=== PATIENT | male | born 1950 | race Caucasian/White ===

== ENCOUNTER 2018-07-15 16:01 | Emergency (ER) | payer MEDICARE, BC, SELFPAY ==
[2018-07-15 16:32] VITALS: BP 150/57; PULSE 73; RESP 18; TEMP 36.8; O2SAT 96
--- NOTE | 2018-07-15 17:17 | W.ED.GENAD ---
Discharge Plan Disposition Patient Disposition: HOME Condition: Stable Discharge Details Chief Complaint: Nk/Back Pain Clinical Impression: Sacroiliac joint pain, Muscle spasm, Low back pain Primary Care Provider: Bessie Vance ED Provider: Beverly Otero Home Meds and New Rx's Prescriptions: New hydromorphone [Dilaudid] 2 mg tablet 2 mg PO Q6H PRN (Reason: pain) Qty: 7 RF: 0 Continued acetaminophen 325 MG tablet 650 mg PO Q4H PRN Qty: 100 RF: 11 blood pressure kit med and lrg 1 EACH kit 1 ea Miscellaneous DAILY Qty: 1 RF: 1 blood-glucose meter [OneTouch Ultra2] 1 EACH kit 1 ea Miscellaneous as directed Qty: 180 RF: 0 insulin syringe-needle U-100 [BD Insulin Syringe] 1 EACH syringe 1 ea Miscellaneous HS Qty: 100 RF: 11 lancets [CirroTouch UltraSoft Lancets] 1 EACH misc 1 ea Miscellaneous BID Qty: 190 RF: 4 Novolog U-100 Insulin aspart 100 UNITS/ML solution 10 units Sub-Q AC Qty: 1 RF: 6 pen needle, diabetic [Pen Needle] 1 EACH needle 1 ea Miscellaneous QID Qty: 100 RF: 3 calcium carbonate 500 MG tablet 500 mg PO TID Qty: 270 RF: 3 aspirin 81 MG tablet,chewable 81 mg PO DAILY Qty: 100 RF: 6 metoprolol succinate 100 MG tablet extended release 24 hr 100 mg PO DAILY 90 Days Qty: 90 RF: 3 ONETOUCH ULTRA TEST STRIPS 1 EACH strip 1 ea Miscellaneous BID Qty: 180 RF: 3 atorvastatin 80 MG tablet 80 mg PO DAILY 90 Days Qty: 90 RF: 3 amlodipine 10 mg tablet 10 mg PO DAILY Qty: 90 RF: 3 Lantus Solostar U-100 Insulin 100 UNIT/1 ML insulin pen 18 u Sub-Q HS RF: 0 Discharge Instructions Instructions: Hydromorphone (By mouth), Low Back Strain (ED), Muscle Spasm (ED) Additional Instructions: Encourage gentle stretching and frequent ambulation. Continue with Tylenol as prescribed for discomfort. Salonpas or Lidoderm patches to affected area. Heat or ice to affected area. Dilaudid as prescribed. Take this only as prescribed, keep in a safe place. Dr. Ortiz has recommended you undergo dialysis tomorrow, please call tomorrow morning You will need prompt follow up with primary care to discuss your back pain, please call tomorrow morning to schedule appointment. If you develop weakness in your legs, altered sensation, fevers/chills, increased pain, change in bladder or bowel function or other new/worsening symptoms please seek care urgently once again. Referrals: Herman De Leon [ NON-[facility] STAFF PHYSICIAN] - Bessie Vance NP [Primary Care Provider] - Discharge Data Discharge Date/Time-TO BE ENTERED AT DEPARTURE: 07/15/18 22:41 Medical Decision Making Patient is 68-year-old male presenting with chief complaint of left lower back pain. Reports the pain is been present for the past week. Denies any trauma. States that the pain is progressive and worsening. States that this morning upon awakening the pain was excruciating. States that secondary to this and the limitations of put on his ADLs, he was unable to attend his typical Friday dialysis treatment. Patient has history of diabetes, hypertension, rosacea, proteinuria, [place], hyperlipidemia, hepatitis C, esophageal reflux, dialysis, stage IV CKD, anemia. Denies any pain radiating into any limb. Denies any fevers or chills. On exam, patient appears chronically ill. He does appear uncomfortable, particularly with movements of his back. Pain is over the left SI joint. No midline tenderness. No step-off. Does not feel tight over this area consistent with muscle spasm. No erythema, warmth or area of fluctuance. No acute abnormalities noted on vital signs. Differential diagnosis includes muscle spasm, osteoarthritis, infection, nerve pain versus other etiology. Discussed concerns with patient. Given his comorbidities, I feel imaging is appropriate at this time despite any known trauma. Will obtain a CT of the patient's SI joint. Will also obtain laboratory evaluation. Patient will be given a one-time dose of Flexeril to help with muscle spasm. CT reviewed by radiologist: FINDINGS: Vertebrae: Mild diffuse osteopenia. Degenerative disc disease and facet arthrosis of the lower lumbar spine. No focal osteolytic or osteoblastic lesion. Sacrum/coccyx: Mild degenerative arthritis of the sacroiliac joints. No inflammatory sacroiliitis. No fracture of the sacrum or suspicious sacral bone lesion. Other bones/joints: Mild degenerative arthrosis of both hip joints. No fracture. Soft tissues: No paraspinal hematoma. Stomach and bowel: Sigmoid diverticulosis. Vasculature: Moderate atherosclerosis throughout the pelvis. Subperitoneal space: Normal presacral soft tissues. DISCS/SPINAL CANAL/NEURAL FORAMINA: L1-L2: Not included on this examination. L2-L3: Mild posterior broad-based disc bulge. No high-grade spinal stenosis. L3-L4: Posterior broad-based disc bulge and facet arthritis. No high-grade spinal stenosis. L4-L5: Mild posterior broad-based disc protrusion and bilateral facet arthritis. No high-grade spinal stenosis. L5-S1: Disc space height loss, vacuum disc, posterior osteophytic ridging and broad-based disc bulge. Bilateral facet hypertrophy. No spinal stenosis. IMPRESSION: 1. No acute abnormality. 2. Degenerative spondylosis of the lumbar spine. 3. Osteopenia. Labs significant for creatinine of 8.63. This is baseline for the patient. No leukocytosis. Sodium is low, potassium is high. Requesting further pain medication. Patient reports no improvement with flexeril. As patient missed dialysis today and will need pain management for extended period with the severity of his pain, will consult with nephrology regarding medications and the patients missed dialysis today. Consulted with Dr. 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 Reviewed imaging, labs and history with the patient. He advised that we could treat with Toradol, other anti-inflammatory, Dilaudid, fentanyl, Tylenol. He did advise that the patient call dialysis tomorrow as his preference is the patient to have 1-2 hours of dialysis tomorrow and routine treatment on Friday. Patient will be treated with IV Toradol, p.o. Tylenol and Lidoderm patch. Discussed plan with patient. Patient reports that pain is improving. However, he is still rating pain at 10/10, states this is down from 50/10. He appears much improved. He is resting comfortably, had been sleeping when I came into the room. He is able to turn in the bed, moving his LE without any signs of discomfort. Discussed further treatment options with the patient. He does not feel sufficiently improved to be able to be discharged. Patient was able to contact neighbor who will come to pick him up, patient initially drove himself here. Will augment his treatment thus far with Fentanyl as this was also advised by Dr. Ortiz. After IV Fentanyl, patient is requesting discharge. Requesting narcotics for home usage for tonight. Will send home with oral Dilaudid as this was advised to be safe per Dr. Ortiz. Plan is for patient to have dialysis tomorrow. Advised that he f/u with PCP in the next 2 days. He will call dialysis center and PCP tomorrow morning. Encouraged hydration. Advised Tylenol or Ibuprofen. Advised heat/ice. Advised topical options to help with discomfort. Encouraged gentle stretching and frequent ambulation. We discussed new/worsening symptoms and when to seek care urgently once again. He will be prescribed oral Dilaudid to be used sparingly if other measures are not sufficient. We discussed risks/benefits of this medication, advised he be judicious with its use. Reviewed PDMP. We discussed home remedies. Encouraged ROM and ambulation. All of their questions and concners were addressed, he is in agreement with this plan. Given strict return precautions. Patient brought home by his neighbor. HPI General Mode of arrival: ambulatory. Date/Time Provider Initiated Documentation: 07/15/18 16:28. Limitations to Documentation: no limitations. Information obtained by: patient. History of Present Illness 68 year old M presents to the emergency department with the chief complaint of left lower back pain, described as severe, with intensity rated at >10. Quality is described as sharp, and is localized to the back. Patient reports no radiation. Patient started experiencing this week(s) (1) and it has been constant. No relieving factors improve symptom(s), No exacerbating factors reported . Patient notes denies chest pain, fever/chills, loss of appetite, nausea/vomiting, rash and weakness. Patient did receive the following treatments prior to arrival, none Related Data Home Medications Medication Instructions Recorded Confirmed acetaminophen 650 mg PO Q4H PRN #100 tab-cap 11/23/15 07/15/18 blood pressure kit med and lrg #1 kit 11/27/15 05/12/18 blood-glucose meter [OneTouch #180 kit 12/04/15 05/12/18 Ultra2] insulin syringe-needle U-100 [BD #100 units 03/15/16 05/12/18 Insulin Syringe] Novolog U-100 Insulin aspart 10 units SUB-Q AC #1 bottle 04/28/17 07/15/18 lancets [OneTouch UltraSoft #190 ea 04/28/17 05/12/18 Lancets] pen needle, diabetic [Pen Needle] #100 units 04/28/17 05/12/18 aspirin 81 mg PO DAILY #100 tab-cap 08/29/17 07/15/18 calcium carbonate 500 mg PO TID #270 tab.chew 08/29/17 07/15/18 metoprolol succinate 100 mg PO DAILY 90 Days #90 tab-cap 01/08/18 07/15/18 atorvastatin 80 mg PO DAILY 90 Days #90 tab-cap 02/12/18 07/15/18 amlodipine 10 mg tablet 10 mg PO DAILY #90 tab-cap 06/16/18 Lantus Solostar U-100 Insulin 18 u SUB-Q HS 07/15/18 07/15/18 hydromorphone [Dilaudid] 2 mg PO Q6H PRN #7 tab 07/15/18 Previous Rx's Medication Instructions Recorded Novolog U-100 Insulin aspart 10 units SUB-Q AC #1 bottle 04/28/17 lancets [OneTouch UltraSoft #190 ea 04/28/17 Lancets] pen needle, diabetic [Pen Needle] #100 units 04/28/17 aspirin 81 mg PO DAILY #100 tab-cap 08/29/17 calcium carbonate 500 mg PO TID #270 tab.chew 08/29/17 metoprolol succinate 100 mg PO DAILY 90 Days #90 tab-cap 01/08/18 atorvastatin 80 mg PO DAILY 90 Days #90 tab-cap 02/12/18 amlodipine 10 mg tablet 10 mg PO DAILY #90 tab-cap 06/16/18 hydromorphone [Dilaudid] 2 mg PO Q6H PRN #7 tab 07/15/18 Allergies Allergy/AdvReac Type Severity Reaction Status Date / Time metformin AdvReac Intermediate diarrhea Unverified 05/12/18 14:01 General Stated Complaint: Nk/Back Pain ASHLI: 3 Review of Systems Constitutional Reports as per HPI, Denies chills, Denies fever(s), Denies headache(s) and Denies weakness ENT Denies headache(s) Cardiovascular Reports as per HPI Respiratory Reports as per HPI and Denies cough Musculoskeletal Reports as per HPI and Denies tingling Integumentary/Breasts Reports as per HPI, Denies rash and Denies wounds Neurologic Denies headache(s), Denies tingling and Denies weakness [facility] Surgical History AV Fistula (03/13/16) AV Fistula (07/10/16) Coronary Stent (10/30/15) Extraction of cataract (09/13/14) glaucoma surg (10/10/14) laser surg both eyes (09/28/14) Family History Mother No problems noted. Father No problems noted. Social History Smoking/Tobacco Use Status: Never alcohol intake: former substance use type: does not use Exam Const General: cooperative, uncomfortable (moving stiff, appears uncomfortable), no acute distress, well developed, well groomed and ill appearing chronically Nutritional Appearance: average body habitus and well nourished Orientation: alert and awake Resp Effort & Inspection: normal respiratory effort, able to speak in complete sentences and no respiratory distress Auscultation: clear to auscultation bilaterally Cardio Rate: regular rate Rhythm: regular rhythm Heart Sounds: S1 normal and S2 normal GI Inspection: normal to inspection Palpation: soft, not rigid and nontender Back/Spine/Pelvis Back: no CVA tenderness Cervical Spine: normal cervical lordosis and cervical ROM normal Thoracic/Lumbar Spine: thoracic and lumbar spine normal to inspection (No midline or paraspinal tenderness. No step-off.) Sacroiliac joints: on the left tender to palpation Skin General skin exam: no rashes or lesions noted Lesions: no lesions Rashes: no rashes Trauma: no lacerations or abrasions Neuro General: alert, awake and oriented x3 Cognition: normal cognition Speech: speech normal Gait: antalgic Motor: muscle tone normal throughout (4/5 in lower extremities, equal bilaterally), no movement abnormalities noted and no fasciculations Sensory Exam: no sensory deficits noted (no saddle paresthesias, 2 point intact) Plantar Reflexes: Equivocal: bilateral Extrem General: normal to inspection, no pedal edema and no calf tenderness Psych Appearance: grossly normal and well kempt Mental Status: mental status grossly normal Speech and Movement: speech and movement normal Course Vital Signs Temperature 36.8 C 07/15/18 16:32 Pulse 73 07/15/18 16:32 Respiratory Rate 18 07/15/18 16:32 Blood Pressure 150/57 H 07/15/18 16:32 Pulse Oximetry 96 07/15/18 16:32 Temperature 36.8 C 07/15/18 16:32 Pulse 73 07/15/18 16:32 Respiratory Rate 18 07/15/18 16:32 Respiratory Effort Non-Labored 07/15/18 16:32 Blood Pressure 150/57 H 07/15/18 16:32 Blood Pressure Position Standing 07/15/18 16:32 Pulse Oximetry 96 07/15/18 16:32 Oxygen Delivery Method Room Air 07/15/18 16:32 Oxygen Flow Rate 0 07/15/18 16:32
--- NOTE | 2018-07-15 17:20 | DI.CT_ITS ---
SYMPTOM/DIAGNOSIS: SEVERE LEFT S-I JOINT PAIN LUMBOSACRAL CT: The history is severe left S-I joint pain. The noncontrast enhanced exam was carried out according to the usual protocol. There is evidence of osteopenia. Degenerative disc disease and facet joint DJD are noted in the lower lumbar spine. There is no evidence of a fracture or subluxation. There is no evidence of a localized area of bony sclerosis, osteolysis or expansion. There are mild degenerative arthritic changes involving the S-I joints. There is nothing to suggest sacroiliitis. Also, there is in fact no evidence of a sacral fracture or localized bony abnormality. Note is also incidentally made of degenerative changes involving the hips. No fractures identified. There is nothing to suggest a paraspinal hematoma. Sigmoid diverticulosis is incidentally noted on this study. There is moderate atherosclerotic changes involving the pelvic arteries. The presacral soft tissues are unremarkable. SUMMARY: Degenerative changes as noted above. No acute abnormality is identified. If there is any further specific clinical question in the follow up evaluation of this patient regarding spinal stenosis then an MRI could be considered.
[2018-07-15] MEDS: Cyclobenzaprine 10 MG TAB PO (17:33)
[2018-07-15 17:54] LABS: Abs Immature Grans 0.03 k/cumm (0.0-0.09); Absolute Basophil Count 0.08 k/cumm (0.0-0.2); Absolute Lymphocyte Count 1.51 k/cumm (1.2-3.4); Absolute Neutrophil Count 6.13 k/cumm (1.2-6.7); Basophils % 0.8; Eosinophils % 19.5; HCT 31.8 % (40.0-50.0); HGB 10.3 g/dL (13.5-17.5); Immature Grans % 0.3; Lymphocytes % 14.2; Mean Corp. HGB Concentration 32.4 g/dL (32.0-36.0); Mean Corpuscular Hemoglobin 28.4 pg (27.0-33.0); Mean Corpuscular Volume 87.6 fL (80-95); Mean Platelet Volume 11.9 fL (8.0-11.0); Monocytes % 7.5; Neutrophils % 57.7; Platelet Count 135 x1000/uL (130-400); RBC 3.63 m/cumm (4.50-6.00); RBC Distribution Width 14.1 % (11.8-14.1); White Blood Cell Count 10.62 k/cumm (4.4-10.8)
[2018-07-15 18:21] LABS: ALT 20 U/L (12-78); AST 8 U/L (15-37); Albumin 3.7 g/dL (3.4-5.0); Alkaline Phosphatase 98 U/L (46-116); Anion Gap 13.6 mmol/L (3-11); BUN 60 mg/dL (7-18); Bilirubin, Total 0.5 mg/dL (0.2-1.0); C-Reactive Protein 0.65 mg/dL (0.0-0.3); CO2 27.4 mmol/L (21.0-32.0); Chloride 91 mmol/L (98-107); Estimated GFR 6.14 (mL/min/1.73m2); Glucose 175 mg/dL (70-100); Potassium 5.4 mmol/L (3.5-5.1); Sodium 132 mmol/L (136-145); Total Protein 7.7 g/dL (6.4-8.2)
[2018-07-15 18:22] LABS: CREATININE 8.63 mg/dL (0.70-1.30); Diff Comment Diff Reviewed
[2018-07-15 18:23] LABS: Absolute Eosinophil Count 2.07 k/cumm (0.0-0.7)
--- NOTE | 2018-07-15 18:32 | DI.VRAD_ITS ---
EXAM: CT Lumbar Spine Without Contrast EXAM DATE/TIME: 07/15/2018 5:25 PM CLINICAL HISTORY: 68 years old, male; Pain; Sciatica; Left; Patient HX: Severe lt si jnt pain; Additional info: Include l3- sacrum per pa TECHNIQUE: Axial computed tomography images of the lumbar spine without intravenous contrast. Coronal and sagittal reformatted images were created and reviewed. COMPARISON: No relevant prior studies available. FINDINGS: Vertebrae: Mild diffuse osteopenia. Degenerative disc disease and facet arthrosis of the lower lumbar spine. No focal osteolytic or osteoblastic lesion. Sacrum/coccyx: Mild degenerative arthritis of the sacroiliac joints. No inflammatory sacroiliitis. No fracture of the sacrum or suspicious sacral bone lesion. Other bones/joints: Mild degenerative arthrosis of both hip joints. No fracture. Soft tissues: No paraspinal hematoma. Stomach and bowel: Sigmoid diverticulosis. Vasculature: Moderate atherosclerosis throughout the pelvis. Subperitoneal space: Normal presacral soft tissues. DISCS/SPINAL CANAL/NEURAL FORAMINA: L1-L2: Not included on this examination. L2-L3: Mild posterior broad-based disc bulge. No high-grade spinal stenosis. L3-L4: Posterior broad-based disc bulge and facet arthritis. No high-grade spinal stenosis. L4-L5: Mild posterior broad-based disc protrusion and bilateral facet arthritis. No high-grade spinal stenosis. L5-S1: Disc space height loss, vacuum disc, posterior osteophytic ridging and broad-based disc bulge. Bilateral facet hypertrophy. No spinal stenosis. IMPRESSION: 1. No acute abnormality. 2. Degenerative spondylosis of the lumbar spine. 3. Osteopenia. Dictated and Authenticated by: Basilio Harris MD. Ordering:GABBY Paul MD
--- NOTE | 2018-07-15 18:45 | NUR.NOTE ---
PA [place] aware of continued pain, PA to reevaluate.
--- NOTE | 2018-07-15 18:56 | ED.GENADUL_ITS ---
Discharge Plan Disposition Patient Disposition: HOME Condition: Stable Discharge Details Chief Complaint: Nk/Back Pain Clinical Impression: Sacroiliac joint pain, Muscle spasm, Low back pain Primary Care Provider: Bessie Vance ED Provider: Beverly Otero Home Meds and New Rx's Prescriptions: New hydromorphone [Dilaudid] 2 mg tablet 2 mg PO Q6H PRN (Reason: pain) Qty: 7 RF: 0 Continued acetaminophen 325 MG tablet 650 mg PO Q4H PRN Qty: 100 RF: 11 blood pressure kit med and lrg 1 EACH kit 1 ea Miscellaneous DAILY Qty: 1 RF: 1 blood-glucose meter [OneTouch Ultra2] 1 EACH kit 1 ea Miscellaneous as directed Qty: 180 RF: 0 insulin syringe-needle U-100 [BD Insulin Syringe] 1 EACH syringe 1 ea Miscellaneous HS Qty: 100 RF: 11 lancets [OntelaTouch UltraSoft Lancets] 1 EACH misc 1 ea Miscellaneous BID Qty: 190 RF: 4 Novolog U-100 Insulin aspart 100 UNITS/ML solution 10 units Sub-Q AC Qty: 1 RF: 6 pen needle, diabetic [Pen Needle] 1 EACH needle 1 ea Miscellaneous QID Qty: 100 RF: 3 calcium carbonate 500 MG tablet 500 mg PO TID Qty: 270 RF: 3 aspirin 81 MG tablet,chewable 81 mg PO DAILY Qty: 100 RF: 6 metoprolol succinate 100 MG tablet extended release 24 hr 100 mg PO DAILY 90 Days Qty: 90 RF: 3 ONETOUCH ULTRA TEST STRIPS 1 EACH strip 1 ea Miscellaneous BID Qty: 180 RF: 3 atorvastatin 80 MG tablet 80 mg PO DAILY 90 Days Qty: 90 RF: 3 amlodipine 10 mg tablet 10 mg PO DAILY Qty: 90 RF: 3 Lantus Solostar U-100 Insulin 100 UNIT/1 ML insulin pen 18 u Sub-Q HS RF: 0 Discharge Instructions Instructions: Hydromorphone (By mouth), Low Back Strain (ED), Muscle Spasm (ED) Additional Instructions: Encourage gentle stretching and frequent ambulation. Continue with Tylenol as prescribed for discomfort. Salonpas or Lidoderm patches to affected area. Heat or ice to affected area. Dilaudid as prescribed. Take this only as prescribed, keep in a safe place. Dr. Ortiz has recommended you undergo dialysis tomorrow, please call tomorrow morning You will need prompt follow up with primary care to discuss your back pain, please call tomorrow morning to schedule appointment. If you develop weakness in your legs, altered sensation, fevers/chills, increase d pain, change in bladder or bowel function or other new/worsening symptoms please seek care urgently once again. Referrals: Herman De Leon [ [facility] STAFF PHYSICIAN] - Bessie Vance NP [Primary Care Provider] - Discharge Data Discharge Date/Time-TO BE ENTERED AT DEPARTURE: 07/15/18 22:41 Medical Decision Making Patient is 68-year-old male presenting with chief complaint of left lower back pain. Reports the pain is been present for the past week. Denies any trauma. States that the pain is progressive and worsening. States that this morning upon awakening the pain was excruciating. States that secondary to this and the limitations of put on his ADLs, he was unable to attend his typical Friday dialysis treatment. Patient has history of diabetes, hypertension, rosacea, proteinuria, CT, hyperlipidemia, hepatitis C, esophageal reflux, dialysis, stage IV CKD, anemia. Denies any pain radiating into any limb. Denies any fevers or chills. On exam, patient appears chronically ill. He does appear uncomfortable, particularly with movements of his back. Pain is over the left SI joint. No mi dline tenderness. No step-off. Does not feel tight over this area consistent with muscle spasm. No erythema, warmth or area of fluctuance. No acute abnormalities noted on vital signs. Differential diagnosis includes muscle spasm, osteoarthritis, infection, nerve pain versus other etiology. Discussed concerns with patient. Given his comorbidities, I feel imaging is appropriate at this time despite any known trauma. Will obtain a CT of the patient's SI joint. Will also obtain laboratory evaluation. Patient will be given a one-time dose of Flexeril to help with muscle spasm. CT reviewed by radiologist: FINDINGS: Vertebrae: Mild diffuse osteopenia. Degenerative disc disease and facet arthrosis of the lower lumbar spine. No focal osteolytic or osteoblastic lesion. Sacrum/coccyx: Mild degenerative arthritis of the sacroiliac joints. No inflammatory sacroiliitis. No fracture of the sacrum or suspicious sacral bone lesion. Other bones/joints: Mild degenerative arthrosis of both hip joints. No fracture. Soft tissues: No paraspinal hematoma. Stomach and bowel: Sigmoid diverticulosis. Vasculature: Moderate atherosclerosis throughout the pelvis. Subperitoneal space: Normal presacral soft tissues. DISCS/SPINAL CANAL/NEURAL FORAMINA: L1-L2: Not included on this examination. L2-L3: Mild posterior broad-based disc bulge. No high-grade spinal stenosis. L3-L4: Posterior broad-based disc bulge and facet arthritis. No high-grade spinal stenosis. L4-L5: Mild posterior broad-based disc protrusion and bilateral facet arthritis. No high-grade spinal stenosis. L5-S1: Disc space height loss, vacuum disc, posterior osteophytic ridging and broad-based disc bulge. Bilateral facet hypertrophy. No spinal stenosis. IMPRESSION: 1. No acute abnormality. 2. Degenerative spondylosis of the lumbar spine. 3. Osteopenia. Labs significant for creatinine of 8.63. This is baseline for the patient. No leukocytosis. Sodium is low, potassium is high. Requesting further pain medication. Patient reports no improvement with flexeril. As patient missed dialysis today and will need pain management for extended period with the severity of his pain, will consult with nephrology regarding medications and the patients missed dialysis today. Consulted with Dr. 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 Reviewed imaging, labs and history with the patient. He advised that we could treat with Toradol, other anti-inflammatory, Dilaudid, fentanyl, Tylenol. He did advise that the patient call dialysis tomorrow as his preference is the patient to have 1-2 hours of dialysis tomorrow and routine treatment on Friday. Patient will be treated with IV Toradol, p.o. Tylenol and Lidoderm patch. Discussed plan with patient. Patient reports that pain is improving. However, he is still rating pain at 10/10, states this is down from 50/10. He appears much improved. He is resting comfortably, had been sleeping when I came into the room. He is able to turn in the bed, moving his LE without any signs of discomfort. Discussed further treatment options with the patient. He does not feel sufficiently improved to be able to be discharged. Patient was able to contact neighbor who will come to pick him up, patient initially drove himself here. Will augment his treatment thus far with Fentanyl as this was also advised by Dr. Ortiz. After IV Fentanyl, patient is requesting discharge. Requesting narcotics for home usage for tonight. Will send home with oral Dilaudid as this was advised to be safe per Dr. Ortiz. Plan is for patient to have dialysis tomorrow. Advised that he f/u with PCP in the next 2 days. He will call dialysis center and PCP tomorrow morning. Encouraged hydration. Advised Tylenol or Ibuprofen. Advised heat/ice. Advised topical options to help with discomfort. Encouraged gentle stretching and frequent ambulation. We discussed new/worsening symptoms and when to seek care urgently once again. He will be prescribed oral Dilaudid to be used sparingly if other measures are not sufficient. We discussed risks/benefits of this medication, advised he be judicious with its use. Reviewed PDMP. We discussed home remedies. Encouraged ROM and ambulation. All of their questions and concners were addressed, he is in agreement with this plan. Given strict return precautions. Patient brought home by his neighbor. HPI General Mode of arrival: ambulatory . Date/Time Provider Initiated Documentation: 07/15/18 16:28 . Limitations to Documentation: no limitations . Information obtained by: patient . History of Present Illness 68 year old M presents to the emergency department with the chief complaint of left lower back pain, described as severe, with intensity rated at >10. Quality is described as sharp, and is localized to the back. Patient reports no radiation. Patient started experiencing this week(s) (1) and it has been constant. No relieving factors improve symptom(s), No exacerbating factors reported . Patient notes denies chest pain, fever/chills, loss of appetite, nausea/vomiting, rash and weakness. Patient did receive the following treatments prior to arrival, none Related Data Home Medications Medication Instructions Recorded Confirmed acetaminophen 650 mg PO Q4H PRN #100 tab-cap 11/23/15 07/15/18 blood pressure kit med and lrg #1 kit 11/27/15 05/12/18 blood-glucose meter [OneTouch #180 kit 12/04/15 05/12/18 Ultra2] insulin syringe-needle U-100 [BD #100 units 03/15/16 05/12/18 Insulin Syringe] Novolog U-100 Insulin aspart 10 units SUB-Q AC #1 bottle 04/28/17 07/15/18 lancets [OneTouch UltraSoft #190 ea 04/28/17 05/12/18 Lancets] pen needle, diabetic [Pen Needle] #100 units 04/28/17 05/12/18 aspirin 81 mg PO DAILY #100 tab-cap 08/29/17 07/15/18 calcium carbonate 500 mg PO TID #270 tab.chew 08/29/17 07/15/18 metoprolol succinate 100 mg PO DAILY 90 Days #90 tab-cap 01/08/18 07/15/18 atorvastatin 80 mg PO DAILY 90 Days #90 tab-cap 02/12/18 07/15/18 amlodipine 10 mg tablet 10 mg PO DAILY #90 tab-cap 06/16/18 Lantus Solostar U-100 Insulin 18 u SUB-Q HS 07/15/18 07/15/18 hydromorphone [Dilaudid] 2 mg PO Q6H PRN #7 tab 07/15/18 Previous Rx's Medication Instructions Recorded Novolog U-100 Insulin aspart 10 units SUB-Q AC #1 bottle 04/28/17 lancets [OneTouch UltraSoft #190 ea 04/28/17 Lancets] pen needle, diabetic [Pen Needle] #100 units 04/28/17 aspirin 81 mg PO DAILY #100 tab-cap 08/29/17 calcium carbonate 500 mg PO TID #270 tab.chew 08/29/17 metoprolol succinate 100 mg PO DAILY 90 Days #90 tab-cap 01/08/18 atorvastatin 80 mg PO DAILY 90 Days #90 tab-cap 02/12/18 amlodipine 10 mg tablet 10 mg PO DAILY #90 tab-cap 06/16/18 hydromorphone [Dilaudid] 2 mg PO Q6H PRN #7 tab 07/15/18 Allergies Allergy/AdvReac Type Severity Reaction Status Date / Time metformin AdvReac Intermediate diarrhea Unverified 05/12/18 14:01 General Stated Complaint: Nk/Back Pain ASHLI: 3 Review of Systems Constitutional Reports as per HPI, Denies chills, Denies fever(s), Denies headache(s) and Denies weakness ENT Denies headache(s) Cardiovascular Reports as per HPI Respiratory Reports as per HPI and Denies cough Musculoskeletal Reports as per HPI and Denies tingling Integumentary/Breasts Reports as per HPI, Denies rash and Denies wounds Neurologic Denies headache(s), Denies tingling and Denies weakness [facility] Surgical History AV Fistula (03/13/16) AV Fistula (07/10/16) Coronary Stent (10/30/15) Extraction of cataract (09/13/14) glaucoma surg (10/10/14) laser surg both eyes (09/28/14) Family History Mother No problems noted. Father No problems noted. Social History Smoking/Tobacco Use Status: Never alcohol intake: former substance use type: does not use Exam Const General: cooperative, uncomfortable (moving stiff, appears uncomfortable), no acute distress, well developed, well groomed and ill appearing chronically Nutritional Appearance: average body habitus and well nourished Orientation: alert and awake Resp Effort & Inspection: normal respiratory effort, able to speak in complete sentences and no respiratory distress Auscultation: clear to auscultation bilaterally Cardio Rate: regular rate Rhythm: regular rhythm Heart Sounds: S1 normal and S2 normal GI Inspection: normal to inspection Palpation: soft, not rigid and nontender Back/Spine/Pelvis Back: no CVA tenderness Cervical Spine: normal cervical lordosis and cervical ROM normal Thoracic/Lumbar Spine: thoracic and lumbar spine normal to inspection (No midline or paraspinal tenderness. No step-off.) Sacroiliac joints: on the left tender to palpation Skin General skin exam: no rashes or lesions noted Lesions: no lesions Rashes: no rashes Trauma: no lacerations or abrasions Neuro General: alert, awake and oriented x3 Cognition: normal cognition Speech: speech normal Gait: antalgic Motor: muscle tone normal throughout (4/5 in lower extremities, equal bilaterally), no movement abnormalities noted and no fasciculations Sensory Exam: no sensory deficits noted (no saddle paresthesias, 2 point intact) Plantar Reflexes: Equivocal: bilateral Extrem General: normal to inspection, no pedal edema and no calf tenderness Psych Appearance: grossly normal and well kempt Mental Status: mental status grossly normal Speech and Movement: speech and movement normal Course Vital Signs Temperature 36.8 C 07/15/18 16:32 Pulse 73 07/15/18 16:32 Respiratory Rate 18 07/15/18 16:32 Blood Pressure 150/57 H 07/15/18 16:32 Pulse Oximetry 96 07/15/18 16:32 Temperature 36.8 C 07/15/18 16:32 Pulse 73 07/15/18 16:32 Respiratory Rate 18 07/15/18 16:32 Respiratory Effort Non-Labored 07/15/18 16:32 Blood Pressure 150/57 H 07/15/18 16:32 Blood Pressure Position Standing 07/15/18 16:32 Pulse Oximetry 96 07/15/18 16:32 Oxygen Delivery Method Room Air 07/15/18 16:32 Oxygen Flow Rate 0 07/15/18 16:32
[2018-07-15 18:57] VITALS: BP 154/80; PULSE 75; RESP 16; O2SAT 95
[2018-07-15] MEDS: Ketorolac 30 MG/ML VIAL IVP (20:30)
[2018-07-15] MEDS: Acetaminophen 325 MG TAB 650 MG PO (20:30)
[2018-07-15] MEDS: fentaNYL 100 MCG/2 ML VIAL 50 MCG IVP (21:45)
[2018-07-15] MEDS: HYDROmorphone 2 MG TAB 6 MG PO (22:22)
[2018-07-15] MEDS: Lidocaine 5% Patch 1 PATCH TP (22:33)
== END 2018-07-15 22:41 | disposition home or self-care (01) ==
PROVIDERS: Emergency Provider Physician Assistant; PCP Nurse Practitioner
DX: M53.3 Sacrococcygeal disorders, not elsewhere classified (principal); M62.830 Muscle spasm of back; M54.5 Low back pain; E11.22 Type 2 diabetes mellitus with diabetic chronic kidney disease; I12.9 Hypertensive chronic kidney disease with stage 1 through stage 4 chronic kidney disease, or unspecified chronic kidney disease; N18.4 Chronic kidney disease, stage 4 (severe); Z99.2 Dependence on renal dialysis; Z79.4 Long term (current) use of insulin
CPT/HCPCS: 36415; 80053; 96374; 96375; 99285; 72131; 85025; 86140; 99284; J1885; J3010

== ENCOUNTER → 2019-04-07 13:33 | Outpatient (BNVA) | payer MEDICARE, BC, SELFPAY | PROVIDERS: PCP Family Medicine; Referring Provider Family Medicine; Visit Provider Student in an Organized Health Care Education/Training Program | DX: I25.5 Ischemic cardiomyopathy (principal); I21.9 Acute myocardial infarction, unspecified; Z95.5 Presence of coronary angioplasty implant and graft; E11.22 Type 2 diabetes mellitus with diabetic chronic kidney disease; I10 Essential (primary) hypertension; Z99.2 Dependence on renal dialysis; E11.39 Type 2 diabetes mellitus with other diabetic ophthalmic complication; N18.6 End stage renal disease; Z79.4 Long term (current) use of insulin | CPT/HCPCS: 99204; 99215 ==

== ENCOUNTER 2019-04-13 18:59 | Outpatient (REF) | payer MEDICARE, BC, SELFPAY | END 2019-04-13 19:19 | LOC: LBN 18:59 | PROVIDERS: PCP Family Medicine; Visit Provider Family Medicine | DX: R19.7 Diarrhea, unspecified (principal) | CPT/HCPCS: 87329; 87505; 87324 ==